=== PATIENT | male | born 1955 ===

== ENCOUNTER 2016-10-07 13:36 | Emergency (ER) | payer OTHER ==
[2016-10-07 13:46] VITALS: BP 131/85; PULSE 100; RESP 20; TEMP 98.2; O2SAT 96
--- NOTE | 2016-10-07 14:19 | C.PDOC ---
History Of Present Illness B/L LOWER BACK PAIN X W 1 MO. LOCALIZED WORSE W MOVEMENT. NO PAIN MEDS TRIED EXAM BACK LIMITED ROM LOWER BACK; L>R LOWER SPASM; NO LS TEND NEURO INTACT Time Seen by Provider: 10/07/16 13:54 Chief Complaint (Nursing): Back Pain History Per: Patient History/Exam Limitations: no limitations Onset/Duration Of Symptoms: Other (1 MONTH) Current Symptoms Are (Timing): Still Present Quality Of Discomfort: "Pain" Previous Symptoms: None Associated Symptoms: None Recent travel outside of the [place]: No Past Medical History Reviewed: Historical Data, Nursing Documentation, Vital Signs Vital Signs: Last Vital Signs Temp 98.2 F 10/07/16 13:46 Pulse 100 H 10/07/16 13:46 Resp 20 10/07/16 13:46 BP 131/85 10/07/16 13:46 Pulse Ox 96 10/07/16 14:37 - Medical History PMH: Diabetes (?), HTN - [facility] Procedures TETANUS TOXOID ADMINIST (04/26/13) Family History: States: Unknown Family Hx - Social History Hx Tobacco Use: No Hx Alcohol Use: No Hx Substance Use: No - Immunization History Hx Tetanus Toxoid Vaccination: Yes Hx Influenza Vaccination: Yes Hx Pneumococcal Vaccination: Yes Review Of Systems Except As Marked, All Systems Reviewed And Found Negative. Constitutional: Negative for: Fever, Chills Cardiovascular: Negative for: Chest Pain Respiratory: Negative for: Shortness of Breath Musculoskeletal: Positive for: Back Pain. Negative for: Neck Pain Skin: Negative for: Rash Neurological: Negative for: Weakness, Numbness, Headache, Dizziness Physical Exam - Physical Exam Appears: Non-toxic, No Acute Distress Skin: Normal Color, Warm, Dry Head: Atraumatic, Normacephalic Neck: Normal ROM, No Midline Cervical Tenderness, No Paracervical Tenderness, No Step Off Deformity, Supple Chest: Symmetrical Cardiovascular: Rhythm Regular Respiratory: Normal Breath Sounds, No Rales, No Rhonchi, No Wheezing Gastrointestinal/Abdominal: Soft, No Tenderness, No Guarding, No Rebound Back: No Vertebral Tenderness, Decreased ROM (ROOM LIMITED DUE TO PAIN), Muscle Spasm (L > R, LOWER SPASM) Extremity: Normal ROM, Capillary Refill (< 2 SEC. ) Neurological/Psych: Oriented x3, Normal Motor, Normal Sensation Gait: Steady ED Course And Treatment O2 Sat by Pulse Oximetry: 96 (RA) Pulse Ox Interpretation: Normal Progress - Re-Evaluation Re-evaluation Note: 10/07/16 14:20 MOTRIN, FLEXERIL, LIDODERM. Disposition Counseled Patient/Family Regarding: Diagnosis, Need For Followup, Rx Given - Disposition Referrals: [facility] [Outside] [facility] [Outside] Disposition: HOME/ ROUTINE Disposition Time: 14:18 Condition: IMPROVED Prescriptions: Cyclobenzaprine [Flexeril] 10 mg PO TID #15 tab Lidocaine 5% [Lidoderm] 2 ea TD PRN PRN #10 patch PRN Reason: Pain, Moderate (4-7) Ibuprofen [Motrin] 600 mg PO Q6 #30 tab Instructions: Chronic Back Pain (ED) Print Language: GERMAN - Clinical Impression Clinical Impression: Chronic back pain - Scribe Statement The provider has reviewed the documentation as recorded by the Oleg Montanez Provider Attestation: All medical record entries made by the Oleg were at my direction and personally dictated by me. I have reviewed the chart and agree that the record accurately reflects my personal performance of the history, physical exam, medical decision making, and the department course for this patient. I have also personally directed, reviewed, and agree with the discharge instructions and disposition.
[2016-10-07] MEDS ORDERED: Lidocaine 5% Patch TD STA (14:20)
[2016-10-07] MEDS ORDERED: Lidocaine 5% Patch TD ONE (14:27)
== END 2016-10-07 15:03 | disposition home or self-care (01) ==
LOC: C.ER 13:36
DX: G89.29 Other chronic pain (principal); M54.5 Low back pain

== ENCOUNTER 2017-02-08 07:14 | Emergency (ER) | payer OTHER ==
[2017-02-08 07:18] VITALS: RESP 18; TEMP 98
[2017-02-08] MEDS ORDERED: Sodium Chloride 0.9% 1,000 ML IV ONE (07:37)
[2017-02-08] MEDS ORDERED: Alum-Mag Hydrox-Simethicone Susp (30 mL) PO STA (07:39)
--- NOTE | 2017-02-08 08:11 | C.PDOC ---
History Of Present Illness 61 year old male who presents to the ER with a complaint of stomach burning and a headache for the past year that has worsened today. Denies nausea, vomiting, abdominal pain, or diarrhea. Time Seen by Provider: 02/08/17 07:17 Chief Complaint (Nursing): Abdominal Pain History Per: Patient History/Exam Limitations: no limitations Onset/Duration Of Symptoms: Days Current Symptoms Are (Timing): Still Present Severity: None Radiation Of Pain To:: None Quality Of Discomfort: Burning Associated Symptoms: denies: Fever, Chills, Nausea, Vomiting, Diarrhea Exacerbating Factors: None Alleviating Factors: None Recent travel outside of the [place]: No Past Medical History Reviewed: Historical Data, Nursing Documentation, Vital Signs Vital Signs: Last Vital Signs Temp 98 F 02/08/17 09:25 Pulse 66 02/08/17 09:25 Resp 18 02/08/17 09:25 BP 117/71 02/08/17 09:25 Pulse Ox 97 02/08/17 10:00 - Medical History PMH: Diabetes (?), HTN Surgical History: No Surg Hx - [facility] Procedures TETANUS TOXOID ADMINIST (04/26/13) Family History: States: Unknown Family Hx - Social History Hx Tobacco Use: No Hx Alcohol Use: No Hx Substance Use: No - Immunization History Hx Tetanus Toxoid Vaccination: Yes Hx Influenza Vaccination: Yes Hx Pneumococcal Vaccination: Yes Review Of Systems Constitutional: Negative for: Fever, Chills Eyes: Negative for: Vision Change Gastrointestinal: Negative for: Nausea, Vomiting, Abdominal Pain Neurological: Positive for: Headache. Negative for: Weakness, Numbness, Dizziness Physical Exam - Physical Exam Appears: Well, Non-toxic, No Acute Distress Skin: Normal Color, Warm, Dry Head: Atraumatic, Normacephalic Eye(s): bilateral: Normal Inspection, EOMI Oral Mucosa: Moist Neck: Normal, Supple Chest: Symmetrical, No Tenderness Cardiovascular: Rhythm Regular, No Murmur Respiratory: Normal Breath Sounds, No Rales, No Rhonchi, No Wheezing Gastrointestinal/Abdominal: Soft, No Tenderness Extremity: Normal ROM Neurological/Psych: Oriented x3, Normal Speech, Normal Cognition, Normal Motor Gait: Steady ED Course And Treatment - Laboratory Results Result Diagrams: 02/08/17 08:18 02/08/17 08:18 Lab Interpretation: Abnormal Interpretation Of Abnormal: low platlets O2 Sat by Pulse Oximetry: 97 (Room air) Pulse Ox Interpretation: Normal Progress Note: Blood work and urinalysis ordered. Maalox, pepcid, toradol, and IV fluids administered. On re-evaluation abdomen soft non-tender, feeling better. instructed to follow up at clinic for further evaluation Reassessment Condition: Improved Disposition Counseled Patient/Family Regarding: Studies Performed, Diagnosis, Need For Followup, Rx Given - Disposition Referrals: [facility] [Outside] [facility] [Outside] Disposition: HOME/ ROUTINE Disposition Time: 09:30 Condition: STABLE Additional Instructions: Follow up with clinic for further evaluation Prescriptions: Famotidine [Pepcid] 20 mg PO BID #30 tab Instructions: Thrombocytopenia (ED), General Headache (ED) Forms: [employer] (Georgian) Print Language: MALAYSIAN - POA Present On Arrival: None - Clinical Impression Clinical Impression: Headache, Abdominal pain - Scribe Statement The provider has reviewed the documentation as recorded by the Scribkayy Fernandez All medical record entries made by the Jeradibkayy were at my direction and personally dictated by me. I have reviewed the chart and agree that the record accurately reflects my personal performance of the history, physical exam, medical decision making, and the department course for this patient. I have also personally directed, reviewed, and agree with the discharge instructions and disposition.
[2017-02-08] MEDS ORDERED: Aluminum Hydroxide/Magnesium Hydroxide Susp (30 mL) ONE (08:19)
[2017-02-08] MEDS ORDERED: Sodium Chloride 0.9% 1,000 ML ONE (08:20)
[2017-02-08 08:22] LABS: BASO % 0.6 % (0.0-2.0); EOS # 0.1 K/uL (0.0-0.7); EOS % 3.7 % (0.0-4.0); HEMATOCRIT 41.6 % (35.0-51.0); LYMPH # 1.1 K/uL (1.0-4.3); LYMPH % 28.6 % (20.0-40.0); MEAN CORPUSCULAR HEMOGLOBIN 30.8 pg (27.0-31.0); MEAN CORPUSCULAR HGB CONC 34.8 g/dL (33.0-37.0); MEAN PLATELET VOLUME 10.5 fL (7.2-11.7); MONO # 0.3 K/uL (0.0-0.8); MONO % 8.1 % (0.0-10.0); NRBC % 0.2 % (0.0-2.0); RED CELL DISTRIBUTION WIDTH 13.8 % (11.5-14.5); WHITE BLOOD COUNT 3.9 K/uL (4.8-10.8)
[2017-02-08 08:26] LABS: MEAN CELL VOLUME 88.3 fL (80.0-94.0)
[2017-02-08 08:28] LABS: RBC URINE < 1 /hpf (0-3); URINE BILIRUBIN NEGATIVE (NEGATIVE); URINE BLOOD NEGATIVE (NEGATIVE); URINE COLOR Yellow (YELLOW); URINE GLUCOSE (UA) NORMAL (Normal); URINE KETONE NEGATIVE (NEGATIVE); URINE LEUKOCYTE ESTERASE NEG Leu/uL (Negative); URINE PROTEIN NEGATIVE (NEGATIVE); URINE UROBILINOGEN NORMAL mg/dL (0.2-1.0); WBC URINE 1 /hpf (0-5)
[2017-02-08 08:29] LABS: CHLORIDE 106 mmol/L (98-107)
[2017-02-08 08:30] LABS: POTASSIUM 3.6 mmol/L (3.6-5.2); SODIUM 138 mmol/L (132-148)
[2017-02-08 08:32] LABS: ALB/GLOB RATIO 1.5 (1.0-2.1); ALKALINE PHOSPHATASE 147 U/L (38-126); AST/SGOT 35 U/L (17-59); BILIRUBIN,TOTAL 0.8 mg/dL (0.2-1.3); BLOOD UREA NITROGEN 15 mg/dL (9-20); CARBON DIOXIDE 22 mmol/L (22-30); GFR AFRICAN-AMERICAN > 60; TOTAL PROTEIN 6.4 g/dL (6.3-8.3)
[2017-02-08 08:33] LABS: ALT/SGPT 46 U/L (21-72); CALCIUM 8.3 mg/dl (8.6-10.4); GLUCOSE,RANDOM 129 mg/dL (75-110)
[2017-02-08 09:26] VITALS: BP 117/71; PULSE 66
[2017-02-08 09:27] VITALS: O2SAT 97
== END 2017-02-08 10:02 | disposition home or self-care (01) ==
LOC: C.ER 07:14
DX: R10.9 Unspecified abdominal pain (principal); R51 Headache
CPT/HCPCS: 80053; 81001; 83690; 85025; 96361; 96374; 96375; 99284; J1885; J7040

== ENCOUNTER 2017-08-11 14:55 | Emergency (ER) | payer OTHER ==
[2017-08-11 14:55] VITALS: BMI 33.4
[2017-08-11 16:35] VITALS: BP 131/86; PULSE 99; RESP 18; TEMP 97.9; O2SAT 98
--- NOTE | 2017-08-11 17:28 | C.PDOC ---
History Of Present Illness VIA TRANS R EAR PAIN X 1 WEEK. PAIN TO AREA OF EAR. NO DC, +MUFFLED HEARING. NO OTHER ASSOC SX EXAM APPEARS COMFORTABLE HEENT +IMPACTED WAX R EAR; L EAR NEG NEURO NO FOCAL DEF Time Seen by Provider: 08/11/17 16:47 Chief Complaint (Nursing): ENT Problem History Per: Patient History/Exam Limitations: None, Language Barrier (1 week) Onset/Duration Of Symptoms: Days Past Medical History Reviewed: Historical Data, Nursing Documentation, Vital Signs Vital Signs: Last Vital Signs Temp 97.9 F 08/11/17 16:29 Pulse 99 H 08/11/17 16:29 Resp 18 08/11/17 16:29 BP 131/86 08/11/17 16:29 Pulse Ox 98 08/11/17 17:29 - Medical History PMH: Diabetes (?), HTN - [facility] Procedures TETANUS TOXOID ADMINIST (04/26/13) Family History: States: No Known Family Hx - Social History Hx Tobacco Use: No Hx Alcohol Use: No Hx Substance Use: No - Immunization History Hx Tetanus Toxoid Vaccination: Yes Hx Influenza Vaccination: Yes Hx Pneumococcal Vaccination: Yes Review Of Systems Except As Marked, All Systems Reviewed And Found Negative. Constitutional: Negative for: Fever ENT: Positive for: Ear Pain (right), Other (+ right ear, muffles hearing). Negative for: Ear Discharge Musculoskeletal: Negative for: Neck Pain Neurological: Negative for: Weakness, Numbness, Headache Physical Exam - Physical Exam Appears: Non-toxic, No Acute Distress Skin: Warm, Dry, No Rash Eye(s): bilateral: Normal Inspection, PERRL, EOMI Ear(s): Left: Normal, Right: Other (impacted wax) Oral Mucosa: Moist Neck: Normal, Normal ROM, Supple Lymphatic: No Adenopathy Respiratory: Normal Breath Sounds, No Wheezing Extremity: Normal ROM, No Swelling Neurological/Psych: Oriented x3, Normal Speech ED Course And Treatment O2 Sat by Pulse Oximetry: 98 Disposition Counseled Patient/Family Regarding: Diagnosis, Need For Followup, Rx Given - Disposition Referrals: Robbie Coronel MD [Staff Provider] - Disposition: HOME/ ROUTINE Disposition Time: 17:26 Condition: GOOD Prescriptions: Carbamide Peroxide [Murine Ear Wax Removal System] 10 drop OD BID #1 bot Instructions: Cerumen Impaction (ED) Forms: [employer] (Samoan) Print Language: DANISH - Clinical Impression Clinical Impression: Impacted cerumen - Scribe Statement The provider has reviewed the documentation as recorded by the Jeradibkayy Poe Provider Attestation: All medical record entries made by the Jeradibe were at my direction and personally dictated by me. I have reviewed the chart and agree that the record accurately reflects my personal performance of the history, physical exam, medical decision making, and the department course for this patient. I have also personally directed, reviewed, and agree with the discharge instructions and disposition.
== END 2017-08-11 17:57 | disposition home or self-care (01) ==
LOC: C.ER 14:55
DX: H61.21 Impacted cerumen, right ear (principal)

== ENCOUNTER 2018-04-25 07:08 | Emergency (ER) | payer OTHER ==
[2018-04-25 07:14] VITALS: BMI 29.9
[2018-04-25 07:18] VITALS: RESP 18
[2018-04-25 07:36] LABS: SQUAMOUS EPITHIAL 1 /hpf (0-5); URINE BILIRUBIN NEGATIVE (NEGATIVE); URINE BLOOD 2+ (NEGATIVE); URINE CLARITY Clear (Clear); URINE COLOR Yellow (YELLOW); URINE GLUCOSE (UA) 3+ mg/dL (Normal); URINE LEUKOCYTE ESTERASE NEG Leu/uL (Negative); URINE PROTEIN NEGATIVE (NEGATIVE); URINE UROBILINOGEN NORMAL mg/dL (0.2-1.0)
[2018-04-25] MEDS ORDERED: Sodium Chloride 0.9% 1,000 ML IV ONE (08:08)
[2018-04-25 08:21] LABS: BASO % 0.8 % (0.0-2.0); EOS # 0.1 K/uL (0.0-0.7); EOS % 3.8 % (0.0-4.0); HEMOGLOBIN 15.4 g/dL (12.0-18.0); LYMPH # 1.2 K/uL (1.0-4.3); LYMPH % 29.8 % (20.0-40.0); MEAN CELL VOLUME 89.7 fL (80.0-94.0); MEAN CORPUSCULAR HEMOGLOBIN 31.7 pg (27.0-31.0); MEAN CORPUSCULAR HGB CONC 35.3 g/dL (33.0-37.0); MONO # 0.3 K/uL (0.0-0.8); MONO % 7.6 % (0.0-10.0); NEUT # 2.3 K/uL (1.8-7.0); RBC 4.87 Mil/uL (4.40-5.90); RED CELL DISTRIBUTION WIDTH 13.2 % (11.5-14.5); WHITE BLOOD COUNT 3.9 K/uL (4.8-10.8)
--- NOTE | 2018-04-25 08:21 | C.PDOC ---
History Of Present Illness 62 years old male presents to ED for complaints of lower back pain associated with increased frequent urination that began 2 weeks. Patient also reports "I think I have a prostate problem." Denies dysuria, fever, hematuria, trauma, or any other physical complaints. Time Seen by Provider: 04/25/18 07:28 Chief Complaint (Nursing): Back Pain History Per: Patient History/Exam Limitations: no limitations Onset/Duration Of Symptoms: Hrs Current Symptoms Are (Timing): Still Present Previous Symptoms: Back Pain Associated Symptoms: None Exacerbating Factor(s): Nothing Recent travel outside of the [place]: No Past Medical History Reviewed: Historical Data, Nursing Documentation, Vital Signs Vital Signs: Last Vital Signs Temp 98.6 F 04/25/18 07:15 Pulse 82 04/25/18 07:15 Resp 18 04/25/18 07:15 BP 150/81 04/25/18 07:15 Pulse Ox 96 04/25/18 07:15 - Medical History PMH: Diabetes (?), HTN - [facility] Procedures TETANUS TOXOID ADMINIST (04/26/13) Family History: States: Unknown Family Hx - Social History Hx Tobacco Use: No Hx Alcohol Use: No Hx Substance Use: No - Immunization History Hx Tetanus Toxoid Vaccination: Yes Hx Influenza Vaccination: Yes Hx Pneumococcal Vaccination: Yes Review Of Systems Constitutional: Negative for: Fever, Chills Gastrointestinal: Negative for: Nausea, Vomiting, Diarrhea Genitourinary: Positive for: Frequency. Negative for: Dysuria, Hematuria Musculoskeletal: Positive for: Back Pain Skin: Negative for: Rash Neurological: Negative for: Weakness, Numbness Physical Exam - Physical Exam Appears: Non-toxic, No Acute Distress Skin: Normal Color, Warm, Dry, No Rash Head: Atraumatic, Normacephalic Eye(s): bilateral: Normal Inspection, PERRL, EOMI Oral Mucosa: Moist Throat: No Erythema, No Exudate Neck: Normal ROM, Supple Chest: Symmetrical, No Tenderness Cardiovascular: Rhythm Regular, No Murmur Respiratory: Normal Breath Sounds, No Decreased Breath Sounds, No Rales, No Rhonchi, No Wheezing Gastrointestinal/Abdominal: Normal Exam, Bowel Sounds (Active ), Soft, No Tenderness, No Guarding, No Rebound Back: Normal Inspection, No CVA Tenderness Extremity: Normal ROM Extremity: Bilateral: Atraumatic, Normal Color And Temperature, Normal ROM Pulses: Left Radial: Normal, Right Radial: Normal Neurological/Psych: Oriented x3, Normal Speech Gait: Steady ED Course And Treatment - Laboratory Results Result Diagrams: 04/25/18 08:16 04/25/18 08:16 O2 Sat by Pulse Oximetry: 96 (RA) Pulse Ox Interpretation: Normal Medical Decision Making Medical Decision Making: Plan: * IV Fluids * Blood work * Urine Culture * Urinalysis Progress: Sugar was found to be elevated. Patient states he not been on medications because he does not have insurance. Patient was offered admission for uncontrolled hyperglycemia but the patient refuses at this time. On re-exam, the patient reports improvement of symptoms. Lungs are CTA, heart is RRR, abdomen is soft, non-tender and tolerating PO well. Ambulatory in the ED with steady gait. Follow up with the medical doctor within 1-2 days. Return if worsened. Disposition - Disposition Referrals: [facility] [Outside] Disposition: HOME/ ROUTINE Disposition Time: 10:38 Condition: STABLE Additional Instructions: Follow up with the medical doctor within 1-2 days. Return if worsened. 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 - Scribe Statement The provider has reviewed the documentation as recorded by the Jeradibkayy Rai All medical record entries made by the Jeradibkayy were at my direction and personally dictated by me. I have reviewed the chart and agree that the record accurately reflects my personal performance of the history, physical exam, medical decision making, and the department course for this patient. I have also personally directed, reviewed, and agree with the discharge instructions and disposition.
[2018-04-25 08:42] LABS: ALB/GLOB RATIO 1.6 (1.0-2.1); ALBUMIN 4.5 g/dL (3.5-5.0); ALT/SGPT 56 U/L (21-72); AST/SGOT 41 U/L (17-59); BLOOD UREA NITROGEN 15 mg/dL (9-20); CALCIUM 8.8 mg/dl (8.6-10.4); GFR NON-AFRICAN AMERICAN > 60
[2018-04-25 10:58] VITALS: BP 136/79; PULSE 69; TEMP 98
[2018-04-25 15:56] VITALS: O2SAT 96
== END 2018-04-25 10:58 | disposition home or self-care (01) ==
LOC: EDBD 07:08 → C.ER 07:08
DX: E11.65 Type 2 diabetes mellitus with hyperglycemia (principal)
CPT/HCPCS: 80053; 81001; 82948; 85025; 87086; 99284; J7030